=== PATIENT | female | born 1990 | race Caucasian/White ===

== ENCOUNTER 2017-01-22 09:19 | Inpatient (IN) | payer BC ==
[2017-01-22] MEDS ORDERED: Cervidil 10 MG VAG SCH (21:00)
[2017-01-22] MEDS ORDERED: BRETHINE 1 MG/ML SQ PRN (21:00)
[2017-01-22] MEDS ORDERED: OMNIPEN 2 GM / NACL 100ML 100 ML IV SCH (21:00)
[2017-01-22 21:47] LABS: BASOPHIL % 0.4 % (0.0-0.4); Eosinophil % 0.8 % (0.00-5.0); Granulocytes % 70.4 % (36.0-66.0); Lymphocytes % 18.4 % (24.0-44.0); Mean Cell Volume 95.7 fl (78-100); Mean Corpuscular Hemoglobin 31.6 pg (26-32); Mean Platelet Volume 13.8 fl (6-9.5); Platelet Count 143 K/mm3 (150-450); Red Blood Count 3.92 M/mm3 (4.1-5.4); White Blood Count 10.8 K/mm3 (4.0-10.5)
[2017-01-23] MEDS ORDERED: OMNIPEN 1 GM IV SCH (05:00)
[2017-01-23] MEDS ORDERED: OMNIPEN 2 GM / NACL 100ML 100 ML IV ONE (05:00)
[2017-01-23] MEDS ORDERED: PITOCIN 30 UNITS/ LR 500 ML 500 ML IV SCH ×2 (06:00)
[2017-01-23] MEDS ORDERED: XYLOCAINE 1% HCL 20 ML MDV IJ PRN (06:00)
[2017-01-23] MEDS: Lactated Ringers 1,000 ML IV SCH ×2 (06:06→11:14)
[2017-01-23] MEDS: PITOCIN 30 UNITS/ LR 500 ML 500 ML IV SCH ×2 (06:08→11:17)
[2017-01-23] MEDS ORDERED: OB EPIDURAL NAROPIN/SUFENTANIL IN NACL EPIDURAL PRN (10:59)
[2017-01-23] MEDS ORDERED: Ephedrine Sulfate 50 MG/ML IV PRN (10:59)
[2017-01-23] MEDS ORDERED: Lactated Ringers 1,000 ML IV ONE (10:59)
[2017-01-23] MEDS: OMNIPEN 1GM / NaCl 100ML 100 ML IV SCH ×2 (11:14→14:36)
[2017-01-23] MEDS ORDERED: Erythromycin 1 GM ONE (17:51)
[2017-01-23] MEDS ORDERED: Vitamin K 1 MG ONE (17:51)
[2017-01-23] MEDS ORDERED: TUCKS TP PRN (18:22)
[2017-01-23] MEDS ORDERED: NORCO 5/325 MG PO PRN (18:22)
[2017-01-23] MEDS ORDERED: LANSINOH 40 GM TOP PRN (18:22)
[2017-01-23] MEDS ORDERED: Ambien 10 MG PO PRN (18:22)
[2017-01-23] MEDS ORDERED: CORTISONE 1% CREAM TP PRN (18:22)
[2017-01-23] MEDS ORDERED: Dulcolax 10 MG SUPP PR PRN (18:22)
[2017-01-23] MEDS ORDERED: Anucort-HC SUPPOSITORY PR PRN (18:22)
[2017-01-23] MEDS ORDERED: Dermoplast Spray TP PRN (18:22)
[2017-01-23] MEDS ORDERED: TYLENOL EXTRA STRENGTH 500 MG PO PRN (18:22)
[2017-01-23] MEDS ORDERED: Restoril 15 MG PO PRN (18:22)
[2017-01-24 00:26] VITALS: O2SAT 98
[2017-01-24 05:41] LABS: BASOPHIL % 0.1 % (0.0-0.4); Eosinophil % 0.9 % (0.00-5.0); Granulocytes % 79.9 % (36.0-66.0); Lymphocytes % 11.3 % (24.0-44.0); Mean Cell Volume 95.9 fl (78-100); Mean Corpuscular Hemoglobin 31.6 pg (26-32); Mean Platelet Volume 13.1 fl (6-9.5); Monocytes % 7.8 % (0.0-12.0); Platelet Count 122 K/mm3 (150-450); Red Blood Count 3.92 M/mm3 (4.1-5.4); Red Cell Distribution Width 13.9 % (11.5-14.0); White Blood Count 13.1 K/mm3 (4.0-10.5)
[2017-01-24] MEDS ORDERED: Adacel Vial IM ONE (10:00)
[2017-01-24] MEDS: Colace 100 MG PO SCH ×2 (10:22→22:54)
[2017-01-24] MEDS: FERREX 150 PO SCH (10:22)
[2017-01-24] MEDS: MOTRIN 400 MG PO PRN (15:25)
[2017-01-25] MEDS: MOTRIN 400 MG PO PRN ×2 (04:09→14:46)
[2017-01-25] MEDS: Colace 100 MG PO SCH (10:30)
[2017-01-25] MEDS: FERREX 150 PO SCH (10:30)
[2017-01-25 15:05] VITALS: BP 123/75; PULSE 86
== END 2017-01-25 17:45 | disposition home or self-care (01) | DRG 775 ==
LOC: OB 20:57 → OBSVTOIN 01-23 07:45
PROVIDERS: ADMIT Family Medicine; ATTEND Family Medicine
PROC: 10E0XZZ Delivery of Products of Conception, External Approach (ICD-10-PCS; principal; 2017-01-23)
PROC: 10907ZC Drainage of Amniotic Fluid, Therapeutic from Products of Conception, Via Natural or Artificial Opening (ICD-10-PCS; 2017-01-23)
DX: O80 Encounter for full-term uncomplicated delivery (principal); Z3A.41 41 weeks gestation of pregnancy; Z37.0 Single live birth
CPT/HCPCS: 01967; 36415; 80307; 85025; 90715; G0378; J0290; J2590; J2795; A9270-GY

== ENCOUNTER 2019-01-03 16:28 | Emergency (ER) | payer BC ==
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
[2019-01-03 17:49] LABS: BASOPHIL % 0.1 % (0.0-0.4); Basophil (Absolute #) 0.01 (0-0.4); Eosinophil % 0.2 % (0.00-5.0); Eosinophil (Absolute #) 0.04 (0-0.5); Granulocyte Absolute (ANC) 13.53 (1.4-6.9); Granulocytes % 84.4 % (36.0-66.0); Hematocrit 43.9 % (35-47); Hemoglobin 15.1 gm/dl (12.0-16.0); Lymphocyte (Absolute #) 1.53 (1.0-4.6); Lymphocytes % 9.5 % (24.0-44.0); Mean Cell Volume 94.4 fl (78-100); Mean Corpuscular Hemoglobin 32.5 pg (26-32); Mean Corpuscular Hgb Concent. 34.4 g/dl (32-36); Mean Platelet Volume 11.9 fl (6-9.5); Monocyte (Absolute #) 0.93 (0.0-1.3); Monocytes % 5.8 % (0.0-12.0); Platelet Count 257 K/mm3 (150-450); Red Blood Count 4.65 M/mm3 (4.1-5.4); Red Cell Distribution Width 12.9 % (11.5-14.0)
[2019-01-03 18:18] LABS: ALBUMIN 4.7 g/dL (3.5-5.0); ALKALINE PHOSPHATASE 55 U/L (38-126); ANION GAP 16.6 MEQ/L (5-15); BLOOD UREA NITROGEN 15 mg/dL (7-17); CHLORIDE 107 mmol/L (98-107); Calcium 10.2 mg/dL (8.4-10.2); Carbon Dioxide 21 mmol/L (22-30); Creatinine 1 0.61 mg/dL (0.52-1.04); Glucose 78 mg/dL (74-106); Potassium 3.7 mmol/L (3.5-5.1); SGOT/AST 27 U/L (14-36); SGPT/ALT 17 U/L (0-35); SODIUM 141 mmol/L (137-145)
[2019-01-03] MEDS ORDERED: BABY ASPIRIN 81 MG CHEW PO ONE (18:47)
[2019-01-03] MEDS ORDERED: BABY ASPIRIN 81 MG CHEW ONE (18:50)
[2019-01-03 19:56] VITALS: PULSE 88
[2019-01-03] MEDS ORDERED: PERCOCET TABLET 5/325MG PO STA ×2 (21:17→21:20)
[2019-01-03] MEDS ORDERED: PERCOCET TABLET 5/325MG ONE (21:39)
[2019-01-03 21:55] VITALS: BP 136/92; O2SAT 99
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
== END 2019-01-03 22:10 | disposition home or self-care (01) ==
LOC: ED 16:28
DX: T14.8XXA Other injury of unspecified body region, initial encounter (principal); S20.312A Abrasion of left front wall of thorax, initial encounter; S80.811A Abrasion, right lower leg, initial encounter; V89.2XXA Person injured in unspecified motor-vehicle accident, traffic, initial encounter; W22.11XA Striking against or struck by driver side automobile airbag, initial encounter; Y92.89 Other specified places as the place of occurrence of the external cause; R07.9 Chest pain, unspecified; T24.012A Burn of unspecified degree of left thigh, initial encounter
CPT/HCPCS: 36415; 71046; 80053; 81025; 84484; 85025; 93005; 94760; 99285; A9270-GY